=== PATIENT | male | born 2000 | race African-American/Black ===

== ENCOUNTER 2024-01-03 13:24 | Emergency (ER) | payer OTHER ==
[2024-01-03 13:30] VITALS: BP 106/74; PULSE 94; RESP 20; TEMP 97.8; BMI 29.0
[2024-01-03] MEDS ORDERED: morphine SULFATE 4 MG/ML VIAL ONE (14:03)
[2024-01-03] MEDS: SODIUM CHLORIDE 0.9% 500 ML INFUS.BAG IV ONE (14:20)
[2024-01-03] MEDS: morphine CARPU-JECT 4 MG/1 ML DISP.SYRIN IVPUSH ONE (14:20)
[2024-01-03 14:25] LABS: BASO % 0.5 % (0-2.0); HEMATOCRIT 43.3 % (35.4-49); LYMPH % 19.7 % (8-40); MCH 31.2 pg (25.7-33.7); MCHC 34.7 g/dl (32.0-35.9); MEAN CELL VOLUME 89.8 fl (80-96); MEAN PLT VOLUME 8.1 fl (7.5-11.1); MONO % 7.8 % (3.8-10.2); PLATELET COUNT 229 10^3/uL (134-434); RBC 4.82 M/mm3 (4.00-5.60); RDW 12.9 % (11.9-15.9); WHITE BLOOD COUNT 6.8 K/mm3 (4.0-10.0)
[2024-01-03 14:47] LABS: POTASSIUM 4.1 mmol/L (3.5-5.1)
[2024-01-03 14:49] LABS: URINE APPEARANCE CLOUDY; URINE BILIRUBIN NEGATIVE (NEGATIVE); URINE COLOR YELLOW; URINE GLUCOSE (UA) NEGATIVE (NEGATIVE); URINE KETONE TRACE (NEGATIVE); URINE LEUK ESTERASE NEGATIVE (NEGATIVE); URINE NITRITE NEGATIVE (NEGATIVE); URINE PROTEIN NEGATIVE (NEGATIVE)
[2024-01-03 14:50] LABS: BLOOD UREA NITROGEN 12.2 mg/dL (7-18)
[2024-01-03 14:53] LABS: CREATININE 0.8 mg/dL (0.55-1.3)
[2024-01-03 14:54] LABS: BILIRUBIN,TOTAL 0.5 mg/dL (0.2-1)
[2024-01-03 14:55] LABS: TOT PROT 7.9 g/dl (6.4-8.2)
[2024-01-03] MEDS ORDERED: KETOROLAC TROMETHAMINE 15 MG/ML VIAL ONE (16:45)
[2024-01-03] MEDS: KETOROLAC TROMETHAMINE 15 MG/ML VIAL IVPUSH ONE (16:51)
== END 2024-01-03 16:53 | disposition home or self-care (01) ==
LOC: JER 13:24
PROC: 3E033NZ Introduction of Analgesics, Hypnotics, Sedatives into Peripheral Vein, Percutaneous Approach (ICD-10-PCS; principal; 2024-01-03)
PROC: 3E033GC Introduction of Other Therapeutic Substance into Peripheral Vein, Percutaneous Approach (ICD-10-PCS; 2024-01-03)
DX: R53.1 Weakness (principal); M54.50 Low back pain, unspecified; R30.0 Dysuria; K52.9 Noninfective gastroenteritis and colitis, unspecified
CPT/HCPCS: 36415; 74176-TC; 80053; 81003; 85025; 87086; 87491; 87591; 99284-25